=== PATIENT | female | born 1985 | race Hispanic/Latino ===

== ENCOUNTER 2023-10-02 18:58 | Emergency (ER) | payer OTHER ==
[~2023-10-02] VITALS: Ht 157.5 cm; Wt 62.1 kg
[2023-10-02] MEDS: MORPHINE 2 MG SYG IVP ONE (19:30)
[2023-10-02 19:39] VITALS: BP 107/65; PULSE 76; RESP 16; O2SAT 100
[2023-10-02 19:44] LABS: BASOPHILS # (AUTO) 0.02 K/uL (0.00-0.20); BASOPHILS % (AUTO) 0.4 % (0.0-5.0); EOSINOPHILS # (AUTO) 0.05 K/uL (0.00-0.70); HEMATOCRIT 31.9 % (36-48); IMMATURE GRANULOCYTE ABSOLUTE 0.02 K/uL (0-1); LYMPHOCYTES % (AUTO) 20.2 % (21.0-51.0); MEAN CORPUSCULAR VOLUME 90.6 fL (79-99); MONOCYTES # (AUTO) 0.6 K/uL (0.1-1.0); MONOCYTES % (AUTO) 12.1 % (3.0-13.0); NEUTROPHILS # (AUTO) 3.3 K/uL (1.8-7.7); NEUTROPHILS % (AUTO) 65.9 % (40.0-77.0); PLATELET COUNT (AUTO) 249 K/uL (130-400); RED BLOOD CELL COUNT(AUTO) 3.52 MIL/uL (4.00-5.50); RED CELL DISTRIBUTION WIDTH 14.2 % (11.0-15.5); WHITE BLOOD COUNT (AUTO) 5.1 K/uL (4.8-10.8)
[2023-10-02 20:03] LABS: CREATININE 0.5 mg/dL (0.5-1.0)
[2023-10-02 20:06] LABS: APPEARANCE,URINE CLEAR (CLEAR); BILIRUBIN,URINE NEGATIVE (NEGATIVE); COLOR,URINE LIGHT-YELLOW (YELLOW); GLUCOSE, URINE (UA) NEGATIVE (NEGATIVE); KETONES,URINE NEGATIVE (NEGATIVE); LEUKOCYTE ESTERASE ,URINE 25 Leu/uL (NEGATIVE); NITRATE,URINE NEGATIVE (NEGATIVE); OCCULT BLOOD,URINE NEGATIVE (NEGATIVE); PROTEIN,URINE NEGATIVE (NEGATIVE); UROBILINOGEN,URINE 0.2 mg/dL (0.2-1.0)
[2023-10-02 20:07] LABS: ALBUMIN 2.8 g/dL (3.5-5.0); BILIRUBIN,TOTAL 0.2 mg/dL (0.2-1.0); TOTAL PROTEIN, SERUM 7.3 g/dL (6.0-8.3)
[2023-10-02 20:12] LABS: ADD UA MICROSCOPIC YES
[2023-10-02 20:14] LABS: SQUAMOUS EPITHELIAL CELL,UR RARE /HPF (0-2)
[2023-10-02] MEDS ORDERED: IOHEXOL-350 75 ML VIAL IV ONE (20:43)
[2023-10-02] MEDS: 0.9%NACL 1000ML 1,000 ML IV ONE (21:06)
[2023-10-02] MEDS: ONDANSETRON 4MG INJ IVP ONE (21:06)
[2023-10-02] MEDS: ACETAMINOPHEN 325 MG TAB PO ONE (22:10)
[2023-10-02] MEDS ORDERED: CLIN-141 PO (22:24)
[2023-10-02] MEDS: CLINDAMYCIN 150 MG CAP PO ONE (23:00)
== END 2023-10-02 23:17 | disposition home or self-care (01) ==
LOC: EDH 18:58
DX: L03.316 Cellulitis of umbilicus (principal); N13.2 Hydronephrosis with renal and ureteral calculous obstruction
CPT/HCPCS: 99285; 74177; 96374; 96361; 80053; 83690; 85025; 87040 ×2; 83605; 81001; 81025; 36415; J7030; J2405; Q9967